=== PATIENT | male | born 1985 | race Asian ===

== ENCOUNTER 2017-04-23 11:19 | Inpatient (IN) | payer MEDICAID ==
[~2017-04-23] VITALS: Ht 177.8 cm; Wt 84.4 kg
[2017-04-23 11:24] VITALS: BP 93/64
--- NOTE | 2017-04-23 11:34 | NUR ---
PT TAKEN IN WHEELCHAIR TO BED 10
--- NOTE | 2017-04-23 11:41 | NUR ---
DR. MAKAYLA CUMMINS PT AT BEDSIDE
--- NOTE | 2017-04-23 11:45 | NUR ---
MOM BRINGS IN SON VIA W/C FOR SOB X 2MONTHS, PROGRESSIVELY GETTING WORSE SINCE LAST NIGHT. PT HERE FROM [place]. MED HX: OVERACTIVE IMMUNE SYSTEM, ARTHRITIS, ECZEMA RX: NONE; DENIES N/V/D; SKIN IS PINK/WARM/DRY; AAOX4 WITH WHEEL CHAIR ASSISTANCE; LUNGS CLEAR BL; HR EVEN AND REGULAR; PT DENIES ANY CP OR COUGH AT THIS TIME; PATIENT STATES PAIN OF 0/10 AT THIS TIME; VSS; PATIENT POSITIONED FOR COMFORT; HOB ELEVATED; BEDRAILS UP X2; BED DOWN. ER MD MADE AWARE OF PT STATUS.
[2017-04-23] MEDS ORDERED: NACL 0.9% 1,000 ML IV SCH (11:54)
--- NOTE | 2017-04-23 12:03 | NUR ---
RT AT BEDSIDE
--- NOTE | 2017-04-23 12:06 | NUR ---
XRAY AT BEDSIDE
[2017-04-23 12:27] LABS: HEMATOCRIT 34.6 % (36-52); HEMOGLOBIN 11.4 g/dL (12.0-18.0); MEAN CORPUSCULAR HEMOGLOBIN 31 pg (27-31); MEAN CORPUSCULAR HGB CONC 33 g/dL (33-37); MEAN CORPUSCULAR VOLUME 93 fL (80-94); PLATELET COUNT (AUTO) 190 K/uL (140-450); RED BLOOD CELL COUNT(AUTO) 3.72 MIL/uL (4.20-6.10); RED CELL DISTRIBUTION WIDTH 13.9 % (11.6-13.7)
[2017-04-23 13:03] LABS: WHITE BLOOD COUNT (AUTO) 31.4 K/uL (4.8-10.8)
[2017-04-23 13:04] LABS: ANION GAP 12.8 (8-16); CARBON DIOXIDE 21.4 mmol/L (21-32); CREATININE 0.7 mg/dL (0.7-1.3); POTASSIUM 4.2 mmol/L (3.5-5.1)
[2017-04-23] MEDS ORDERED: NACL 0.9% 1,500 ML IV ONE (13:05)
[2017-04-23] MEDS ORDERED: NACL 0.9% 250 ML IV ONE (13:05)
[2017-04-23 13:06] LABS: LYMPHOCYTES % (MANUAL) 3 % (20-46); MONOCYTES % (MANUAL) 4 % (5-12)
[2017-04-23 13:09] LABS: ALBUMIN 1.7 g/dL (3.4-5.0); TOTAL BILIRUBIN 0.5 mg/dL (0.0-1.0)
[2017-04-23] MEDS ORDERED: PIPERACILLIN/TAZOBACTAM 3.375 GM in DEXTROSE 5% 50 ML IV ONE (13:10)
[2017-04-23 13:12] LABS: PROTHROMBIN TIME 11.6 secs (10.8-13.4)
[2017-04-23] MEDS ORDERED: ASPIRIN 81 MG TAB.CHEW PO SCH ×2 (13:25→17:00)
[2017-04-23] MEDS ORDERED: HYDROcodone/APAP 5/325 MG 1 TAB TAB PO PRN (13:25)
[2017-04-23] MEDS ORDERED: PROMETHAZINE 25 MG/ML VIAL IVP PRN (13:25)
[2017-04-23] MEDS ORDERED: NITROGLYCERIN 0.4 MG TAB SL PRN (13:25)
[2017-04-23] MEDS ORDERED: PIPERACILLIN/TAZOBACTAM 3.375 GM VIAL IV ONE (13:28)
[2017-04-23 13:46] LABS: LIPASE 178 U/L (73-393)
--- NOTE | 2017-04-23 13:52 | NUR ---
CALLED DR. JOEY BARTON [phone] NO ANSWER; [phone] LEFT CALL BACK NUMBER [phone] RE: ABG ORDERED 04/23/2017 AT 1343 PATIENT REMAINS IN ED UNDER DR. AUBREY NUNN PREVIOUS ABG COMPLETED AT 1210
[2017-04-23] MEDS ORDERED: LIDOCAINE MPF 1% - **ER/OR** 5 ML ONE ×2 (13:58→15:20)
[2017-04-23] MEDS ORDERED: MORPHINE SULFATE 2 MG/ML SYR IVP ONE (14:25)
[2017-04-23] MEDS ORDERED: MIDAZOLAM 2 MG/2 ML VIAL IV ONE (14:25)
[2017-04-23] MEDS ORDERED: METOPROLOL 25 MG TAB PO SCH ×2 (15:00→21:00)
[2017-04-23] MEDS ORDERED: LISINOPRIL 5 MG TAB PO SCH (15:00)
--- NOTE | 2017-04-23 15:01 | NUR ---
[address]ND CALL TO DR. SAMMIE BARTON ON PHONE NUMBERS NOTED AT [phone] PATIENT REMAINS IN ED
--- NOTE | 2017-04-23 15:40 | NUR ---
DR. SAMMIE BARTON CURRENTLY AT BEDSIDE ER-10 PREPARING FOR CHEST TUBE INSERTION ASSIST WITH DR. AUBREY NUNN REVIEWED ABG ORDERED PER MD DR. LOYD MAYBERRY
--- NOTE | 2017-04-23 15:51 | NUR ---
XRAY AT BEDSIDE
--- NOTE | 2017-04-23 16:10 | NUR ---
PATIENT CURRENTLY IN RADIOLOGY FOR CT SCAN PAPER AND PULP MILL WORKER TO ATTEMPT ABG AT A LATER TIME
--- NOTE | 2017-04-23 16:30 | NUR ---
Patient will be admitted to [facility]. Admited to ICU. Will go to room ICU6. Belongings list completed. Report to CARMEL UREÑA.
[2017-04-23 16:45] VITALS: BP 116/70
[2017-04-23] MEDS ORDERED: LORazepam 2 MG/ML VIAL IVP SCH (16:45)
[2017-04-23] MEDS: NACL 0.9% 1,000 ML IV SCH ×3 (17:12→23:20)
[2017-04-23 17:18] LABS: CHOL/HDL RATIO 4.6 (1-4.5); FREE T4 (FREE THYROXINE) 1.29 ng/dL (0.76-1.46); THYROID STIMULATING HORMONE 0.57 uIU/mL (0.34-3.74)
--- NOTE | 2017-04-23 17:27 | NUR ---
AT [address] CARNES. WILL FOLLOW UP ON ORDER.
--- NOTE | 2017-04-23 17:32 | NUR ---
PT BROUGHT FROM CT SCAN TO ICU AT 1440 AM. PT ALERT AND ORIENTED. MACANESE SPEAKING ONLY. SKIN DRY AND WARM TO TOUCH. BODY TEMPERATURE WAS 100 DEGREE F. EXTRA CLOTHES REMOVED AND COLD COMPRESS PROVIDED. PUPILS REACTIVE TO LIGHT. SINUS TACHY. LUNGS SOUND DIMINISHED ON AUSCULTATION. CHEST TUBE NOTED ON RIGHT UPPER CHEST SECURED WITH DRESSING WITH CHEST TUBE CLAMPED. DRESSING INTACT. RIGHT AC INTACT. ABDOMEN SOFT ROUND AND NON-TENDER. ACTIVE BOWEL SOUND ON ALL FOUR QUADRANTS. DIFFUSE EXCORIATIONS TO THE BILATERAL SHOULDER, HANDS, PENIS NOTED. DRY. OPEN SKIN ON SACROCOCCYX AREA, DRY. NO DRAINAGE. KEPT HOB ELEVATED. BED IN LOW POSITION LOCKED. ORIENTED TO ICU KENT, STAFF, BED, CALL LIGHT. WILL CONTINUE TO MONITOR. FAMILY AT BEDSIDE. WILL CONTINUE TO MONITOR.
[2017-04-23 18:00] VITALS: BP 107/65
--- NOTE | 2017-04-23 19:10 | NUR ---
AT 181 BODY TEMPERATURE REDUCED TO 99.3 DEGREE F.
--- NOTE | 2017-04-23 19:15 | NUR ---
TEMPERATURE REDUCED TO 98.4 DEGREE F. PT SLEEPING IN BED COMFORTABLE. HR 125, RR 25 SPO2 93%. BP 99/51. O2 AT 2 LTR/MIN VIA N/C. NO ACUTE RESPIRATORY DISTRESS NOTED. NO CHANGE IN LOC. WILL CONTINUE TO MONITOR.
--- NOTE | 2017-04-23 19:30 | NUR ---
RECEIVED REPORT FROM NIRANJAN. CARMEL. PT IS LETHARGIC, AROUSABLE TO VOICE, PT IS MALTESE SPEAKER BUT ABLE TO FOLLOW SIMPLE COMMANDS. PT IS ON O2 2L/MIN VIA NC, O2 SAT 94%, TACHYPNEA. BILATERAL LUNG SOUND DIMINISHED. PT HAS CHEST TUBE AT RIGHT UPPER CHEST CONNECTED TO SUCTION. PERIPHERAL LINE TO RIGHT AC WITH NS 100ML/HR. OPEN SKIN TEAR TO SACRAL AREA, SCABS TO BILATERAL BACK SHOULDERS, RIGHT HAND, AND PENIS NOTED. ST ON THE MONITOR, HEART RATE ABOVE 120'S, BP 95/65 NOTED. HOB ELEVATED, BED IS LOW POSITION, CALL LIGHT WITHIN REACH. WILL CONTINUE TO MONITOR.
--- NOTE | 2017-04-23 19:35 | NUR ---
ENDORSED TO NOC SHIFT RN FOR CONTINUITY OF CARE. PT ON STABLE CONDITION.
--- NOTE | 2017-04-23 19:45 | NUR ---
PATIENT IS TACHYCARDEIC HR 125-126/MIN, BP 95/[address] WATSON, WITH NEW TO GIVE ANOTHER 1 LITER IV BOLUS OF NORMAL SALINE; CARRIED OUT.
--- NOTE | 2017-04-23 19:50 | NUR ---
CT CHEST CRITICAL RESULT SEEN AND READ BY DR. WATSON
[2017-04-23 20:00] VITALS: BP 107/69
[2017-04-23] MEDS ORDERED: NACL 0.9% 1,000 ML IV ONE (20:00)
--- NOTE | 2017-04-23 20:15 | NUR ---
INSERTED FREEMAN CATH ORDERED, PT TOLERATED WELL. CLEAR YELLOWISH URINE DRAINING TO THE BAG NOTED.
[2017-04-23] MEDS ORDERED: PIPERACILLIN/TAZOBACTAM 3.375 GM in DEXTROSE 5% 50 ML IV SCH (21:00)
[2017-04-23] MEDS ORDERED: PIPER/TAZO 3.375GM/D5W PREMIX 50 ML IV SCH (21:00)
[2017-04-23 21:11] LABS: APPEARANCE,URINE CLEAR (CLEAR); BILIRUBIN,URINE NEGATIVE (NEGATIVE); BLOOD, URINE TRACE-L (NEGATIVE); COLOR,URINE YELLOW (YELLOW); LEUKOCYTE ESTERASE ,URINE NEGATIVE (NEGATIVE); NITRITE, URINE NEGATIVE (NEGATIVE); UGLUCOSE NEGATIVE (NEGATIVE)
--- NOTE | 2017-04-23 21:15 | NUR ---
ADMINISTERED SCHEDULED MEDICATION ORDERED, PT TOLERATED WELL. NO ACUTE DISTRESS NOTED. TACHYPNEA, TACHYCARDIA NOTED AT THIS TIME. PT CLOSED HIS EYES, AROUSABLE TO VOICE.
[2017-04-23 21:17] LABS: BARBITURATE, URINE NEG. ng/ml (NEG <=200); BENZODIAZEPINE, URINE POS. ng/mL (NEG <=200); CANNABINOID, URINE NEG. ng/mL (NEG <=50); COCAINE, URINE NEG. ng/mL (NEG <=300); OPIATE, URINE POS. ng/mL (NEG <=2000); PHENCYCLIDINE SCREEN,URINE NEG. ng/mL (NEG <=25)
[2017-04-23 21:23] LABS: RBC,URINE 0-5 (RARE) /HPF (0-5); WBC,URINE 0-5 (RARE) /HPF (0-5)
[2017-04-23 21:24] LABS: URINE AMORPHOUS URATE 1+ /HPF (None Seen)
[2017-04-23 22:00] VITALS: BP 105/71
--- NOTE | 2017-04-23 23:00 | NUR ---
DR. WATSON AND TECH ARE AT BEDSIDE TO INSERT CENTRAL LINE.
--- NOTE | 2017-04-23 23:50 | NUR ---
CENTRAL LINE INSERTION DONE, PT TOLERATED WELL. NO ACUTE DISTRESS NOTED. PT DENIES PAIN. WILL CONTINUE TO MONITOR.
[2017-04-24] VITALS (52 sets, daily range): BP systolic 85–166; BP diastolic 53–79
--- NOTE | 2017-04-24 00:10 | NUR ---
CXR DONE AT THIS TIME TO CHECK CENTRAL LINE PLACEMENT.
--- NOTE | 2017-04-24 00:25 | NUR ---
FEVER NOTED 100.4 F AT THIS TIME. ADMINISTERED PRN TYLENOL ORDERED. PT TOLERATED WELL. HEART RATE 130'S NOTED, BP 105/69. WILL CONTINUE TO MONITOR.
[2017-04-24] MEDS: ACETAMINOPHEN 325 MG TAB PO PRN (00:27)
--- NOTE | 2017-04-24 01:15 | NUR ---
AND AT BEDSIDE TO SEE THE PT. WILL FOLLOW THE ORDER.
[2017-04-24] MEDS ORDERED: VANCOMYCIN PER PHARMACY MC PRN (01:25)
[2017-04-24] MEDS ORDERED: VANCOMYCIN 1GM/DEXT 5% PREMIX 200 ML IV SCH (01:50)
[2017-04-24] MEDS ORDERED: LEVOFLOXACIN 750 MG/D5W PREMIX 150 ML IV ONE (01:59)
[2017-04-24] MEDS ORDERED: cefTRIAXone 1,000 MG VIAL ONE (02:00)
[2017-04-24] MEDS: LEVOFLOXACIN 750 MG/D5W PREMIX 150 ML IV SCH (02:04)
--- NOTE | 2017-04-24 02:30 | NUR ---
PT IS IN ASLEEP, AROUSABLE TO VOICE. NO ACUTE DISTRESS NOTED, ST ON THE STAFFING BRANCH MANAGER. 95% O2 SAT WITH NON REBREATHER MASK 100%. T 98.8 NOTED. WILL CONTINUE TO MONITOR.
--- NOTE | 2017-04-24 03:05 | NUR ---
RECEIVED ORDER FROM AARSH SERRANO TO USE CENTRAL LINE.
[2017-04-24] MEDS: cefTRIAXone 2,000 MG in DEXTROSE 5% 100 ML IV SCH (03:30)
[2017-04-24] MEDS: NACL 0.9% 1,000 ML IV SCH ×6 (03:54→15:56)
[2017-04-24 04:39] LABS: HEMATOCRIT 31.3 % (36-52); HEMOGLOBIN 10.1 g/dL (12.0-18.0); MEAN CORPUSCULAR HEMOGLOBIN 30 pg (27-31); MEAN CORPUSCULAR HGB CONC 32 g/dL (33-37); MEAN CORPUSCULAR VOLUME 94 fL (80-94); PLATELET COUNT (AUTO) 153 K/uL (140-450); RED BLOOD CELL COUNT(AUTO) 3.32 MIL/uL (4.20-6.10); RED CELL DISTRIBUTION WIDTH 14.2 % (11.6-13.7); WHITE BLOOD COUNT (AUTO) 17.5 K/uL (4.8-10.8)
--- NOTE | 2017-04-24 05:03 | NUR ---
changed Pt from NRB mask to 7L oximizer. pt is asleep comfortably. spo2 93%. no distress noted. rn youseb aware
[2017-04-24 05:18] LABS: PROTHROMBIN TIME 11.6 secs (10.8-13.4)
--- NOTE | 2017-04-24 05:30 | NUR ---
PT IS IN ASLEEP, AROUSABLE TO VOICE, VERBALLY RESPONSIVE. NO ACUTE DISTRESS NOTED. O2 SAT 95% WITH OXYMIZER 7L/M. ST ON THE MONITOR. DENIES ANY PAIN. NO FEVER NOTED. WILL CONTINUE TO MONITOR.
[2017-04-24] MEDS ORDERED: PIPER/TAZO 3.375GM/D5W PREMIX 50 ML IV SCH (06:00)
[2017-04-24 06:09] LABS: LYMPHOCYTES % (MANUAL) 3 % (20-46); MONOCYTES % (MANUAL) 4 % (5-12)
[2017-04-24 06:18] LABS: ALBUMIN 1.2 g/dL (3.4-5.0); ANION GAP 9.1 (8-16); CARBON DIOXIDE 23.3 mmol/L (21-32); CREATININE 0.5 mg/dL (0.7-1.3); MAGNESIUM 1.9 mg/dL (1.8-2.4); PHOSPHORUS 3.1 mg/dL (2.5-4.9); POTASSIUM 3.4 mmol/L (3.5-5.1); TOTAL BILIRUBIN 0.3 mg/dL (0.0-1.0)
--- NOTE | 2017-04-24 07:20 | NUR ---
REPORT GIVEN TO DOMINIQUE.
--- NOTE | 2017-04-24 07:30 | NUR ---
RECEIVED REPORT FROM NIGHT NURSE. PT IS LETHARGIC, AROUSABLE TO VOICE, FOLLOWS SIMPLE COMMANDS. SINUS TACHY ON MONITOR. PT IS ON O2 AT 7 LPM/NC. LUNGS SOUND DIMINISHED. INTERMITTENT, PRODUCTIVE COUGH NOTED. CHEST TUBE TO RIGHT UPPER CHEST CONNECTED TO SUCTION. CENTRAL LINE TLC TO LEFT IJ ASYMPTOMATIC, PATENT AND INTACT, RECEIVING NORMAL SALINE AT 180 ML/HR. ABDOMEN SOFT, NON DISTENDED W/ HYPOACTIVE BOWEL SOUNDS. SMALL OPEN SKIN TO SACRAL AREA, MULTIPLE SCABS TO BILATERAL SHOULDERS, HANDS AND PENIS NOTED. SKIN IS DRY AND WARM TO TOUCH. FREEMAN CATH IN PLACE DRAINING URINE TO GRAVITY DRAINAGE BAG. SCDS IN PLACE FOR VTE PROPHYLAXIS. HOB 30 DEGREES, BED IN LOWEST POSITION AND CALL LIGHT WITHIN REACH. WILL CONTINUE TO MONITOR.
--- NOTE | 2017-04-24 08:00 | NUR ---
DR. BANKS IN TO SEE AND EXAMINE PT. MADE AWARE OF POTASSIUM LEVEL OF 3.4. WILL FOLLOW UP ON ORDERS.
[2017-04-24] MEDS: DOCUSATE 100 MG/10 ML UDC GT SCH (08:42)
[2017-04-24] MEDS: ASPIRIN 81 MG TAB.CHEW PO SCH (08:44)
[2017-04-24] MEDS: LACTOBACILLUS RHAMNOSUS GG 1 EACH CAP PO SCH (08:44)
[2017-04-24] MEDS ORDERED: ATORVASTATIN 20 MG TAB PO SCH (09:00)
[2017-04-24] MEDS ORDERED: ASPIRIN 81 MG TAB.CHEW PO SCH (09:00)
--- NOTE | 2017-04-24 09:00 | NUR ---
MEDICATIONS ADMINISTERED. PT IS HAVING INTERMITTENT, PRODUCTIVE COUGH. YELLOWISH THICK SPUTUM NOTED. WILL CONTINUE TO MONITOR.
[2017-04-24 09:13] LABS: HEPATITIS A ANTIBODY IGM Negative (Negative); HEPATITIS B CORE AB TOTAL Negative (Negative); HEPATITIS B SURFACE ANTIBODY Reactive (.); HEPATITIS B SURFACE ANTIGEN Negative (Negative)
--- NOTE | 2017-04-24 09:30 | NUR ---
PT'S MOTHER CAME TO VISIT. DR. BANKS CAME AND TALKING TO PT'S MOTHER AT BEDSIDE.
--- NOTE | 2017-04-24 10:06 | NUR ---
PT SEEN AND EXAMINED BY DR. BERNAL. WILL FOLLOW UP ON ORDERS.
[2017-04-24] MEDS ORDERED: POTASSIUM CHLORIDE 20% 40 MEQ/15 ML UDC PO SCH (10:14)
[2017-04-24] MEDS ORDERED: MULTIVITAMIN-12 10 ML, THIAMINE 100 MG, MAGNESIUM SULFATE 50% 2,000 MG, FOLIC ACID 5 MG... IV SCH ×5 (10:30)
--- NOTE | 2017-04-24 10:44 | NUR ---
DR VARGAS CALLED TO GET UPDATE. WITH ORDERS FOR ABG AND TO STOP BANANA BAG. RT AND PRIMARY RN MADE AWARE.
--- NOTE | 2017-04-24 11:10 | NUR ---
PENDING WOUND CARE EVALUATION, DOCTOR AT BEDSIDE PERFORMING PROCEDURE, WILL RETURN WHEN PT IS AT STABLE CONDITION.
--- NOTE | 2017-04-24 11:20 | NUR ---
PT WAS INTUBATED BY DR. VARGAS. VENT SETTINGS: AC 12, FIO2 100%, VT 500, PEEP 8. HR 180. DR. VARGAS, DR BANKS AT BEDSIDE AWARE. WILL FOLLOW UP ON ORDERS.
--- NOTE | 2017-04-24 11:20 | NUR ---
PT WAS INTUBATED BY DR. VARGAS WITH 7.5 ET TUBE SECURED AT LEFT CORNER OF MOUTH WITH ANCHOR FAST AND SPUTUM COLLECTED LARGE AMT OF THICK YELLOW SECRETIONS, B\S ARE COARSE BILATERALLY, VENT SETTINGS AC12 VT 500 PEEP 8 AND FIO2 100% ALARMS ON AND FUNCTIONING PT IS SEDATED AND HAVING XRAY DONE. ABG AND TX ARE ORDERED
--- NOTE | 2017-04-24 11:28 | NUR ---
PATIENT HAS BEEN SCREENED AND CATEGORIZED HIGH NUTRITION RISK. PATIENT WILL BE SEEN WITHIN 1-2 DAYS OF ADMISSION. 04/24/17 - 04/25/[address]
[2017-04-24] MEDS ORDERED: ALBUTEROL SULFATE/IPRATROPIU 3 ML SOL IH PRN (11:40)
--- NOTE | 2017-04-24 12:00 | NUR ---
NORMAL SALINE 1 L BOLUS GIVEN ORDERED.
[2017-04-24] MEDS: PROPOFOL 1000 MG/100 ML PREMIX 100 ML IV PRN (12:02)
[2017-04-24] MEDS: methylPREDNISolone SS 125 MG/2 ML VIAL IVP SCH ×2 (12:30→20:46)
[2017-04-24] MEDS: VANCOMYCIN 750 MG in DEXTROSE 5% 250 ML IV SCH ×2 (12:31→23:41)
[2017-04-24] MEDS: ALBUTEROL SULFATE/IPRATROPIU 3 ML SOL IH SCH ×2 (12:59→19:11)
--- NOTE | 2017-04-24 12:59 | NUR ---
VENT CHECK, I\L TX GIVEN WITH DUONEB 3ML WITH NO ADVERSE REACTION POST TX B\S ARE COARSE
--- NOTE | 2017-04-24 13:30 | NUR ---
ANOTHER NORMAL SALINE 1 L BOLUS GIVEN ORDERED.
--- NOTE | 2017-04-24 13:30 | NUR ---
DR. BANKS IN THE UNIT TO SEE PT, IS AWARE OF ABG RESULTS. WILL FOLLOW UP ON ORDERS.
[2017-04-24] MEDS ORDERED: ETOMIDATE 20 MG/10 ML VIAL IVP SCH (13:46)
[2017-04-24] MEDS ORDERED: VECURONIUM 10 MG VIAL IVP SCH (13:47)
[2017-04-24] MEDS ORDERED: NACL 0.9% 1,000 ML IV SCH (13:59)
[2017-04-24] MEDS ORDERED: PROBIOTIC SCREEN 1 EA MISC MC PRN (14:25)
--- NOTE | 2017-04-24 14:43 | NUR ---
NO ACUTE DISTRESS NOTED AT THIS TIME. PT IS SEDATED. FLACC 0. AFEBRILE. HOB KEPT AT 30 DEGREES AND SAFETY MEASURES ENSURED. WILL CONTINUE TO MONITOR.
--- NOTE | 2017-04-24 14:54 | NUR ---
04/24/17 RD INITIAL ASSESSMENT COMPLETED PLEASE REFER TO NUTRITION ASSESSMENT UNDER CARE ACTIVITY FOR ESTIMATED NUTRITIONAL NEEDS. 1. WHEN MEDICALLY APPROPRIATE CONSIDER NUTRITION SUPPORT: NUTREN PULMONARY AT 10 ML/HR AND ADVANCE 10 ML Q6H TO GOAL OF 60 ML/HR --AT GOAL OF 60 ML/HR THIS WILL PROVIDE 1440 ML TOTAL VOLUME, 2160 KCAL, 98 GM PROTEIN TO MEET 100% OF PATIENT ESTIMATED KCAL NEEDS AND 92% OF PATIENT ESTIMATED PROTEIN NEEDS 2. SHOULD PATIENT BE WEANED OFF OF VENTILATOR SUPPORT, CONSIDER SWALLOW EVALUATION TO DETERMINE PATIENTS PO INTAKE ABILITY. 3. CONSULT RD PRN SHOULD PATIENTS PO INTAKE CHANGE. 4. RD TO FOLLOW-UP 2-3 DAYS, HIGH RISK KATE PHELAN RD
--- NOTE | 2017-04-24 15:37 | NUR ---
VENT CHECK ABG DRAWN ON LB WITHOUT INCIDENT AND RESULTS CALLED BACK TO DR. VARGAS AND ABG AT 1730 AND SPUTUM COLLECTED FOR C&S THE FIRST SAMPLE LAB SENT OUT FOR AFB
[2017-04-24] MEDS ORDERED: FERRIC GLUCONATE 125 MG in NACL 0.9% 100 ML IV SCH (16:00)
[2017-04-24] MEDS ORDERED: SODIUM BICARBONATE 8.4% PFS 50 MEQ/50 ML SYR IVP SCH (16:00)
--- NOTE | 2017-04-24 17:11 | NUR ---
VENT CHECK, ABG DRAWN ON LB WITHOUT INCIDENT AND RESULTS CALLED TO DR. VARGAS
--- NOTE | 2017-04-24 17:17 | NUR ---
ABG RESULTS READ BACK TO DR. VARGAS AND DECREASE FIO2 TO 70% AND ABG IN AM AT 0600
--- NOTE | 2017-04-24 17:30 | NUR ---
OK TO USE OGT PER DR. WATSON. NO GASTRIC RESIDUALS NOTED AT THIS TIME. TUBE FEEDING STARTED ORDERED. WILL CONTINUE TO MONITOR.
--- NOTE | 2017-04-24 17:45 | NUR ---
PT C/O DISCOMFORT DUE TO ETT. PT IS LIGHTLY SEDATED W/ RASS -2. DR. BARTON MADE AWARE OF PT'S DISCOMFORT. NO NEW ORDER AT THIS TIME AND KEEP PT AT RASS -2. SOFT MITTENS APPLIED TO BILATERAL HANDS TO PREVENT ACCIDENTAL PULLING OF ETT.
--- NOTE | 2017-04-24 18:20 | NUR ---
DR. GIL IN TO SEE PT. WILL FOLLOW UP ON ORDERS.
--- NOTE | 2017-04-24 19:18 | NUR ---
REPORT GIVEN TO NIGHT NURSE FOR CONTINUITY OF CARE. NO ACUTE DISTRESS NOTED AT THIS TIME.
--- NOTE | 2017-04-24 19:25 | NUR ---
RECEIVED REPORT FROM MORNING SHIFT NURSE DOMINIQUE. PT IS SEDATED WITH PROPOFOL, AROUSABLE TO VOICE, ABLE TO FOLLOW SIMPLE COMMANDS. ETT TO VENT WITH SETTING A/C MODE RATE 20, FIO2 70%, VT 600, PEEP 8. BILATERAL LUNG SOUND RHONCHI, DIMINISHED. ST ON THE MONITOR. TACHYPNEA NOTED. CHEST TUBE TO RIGHT UPPER CHEST CONNECTED TO SUCTION. PT HAS CENTRAL LINE TO LEFT IJ TRIPLE LUMEN CATH INTACT AND PATENT, NO S/S OF INFECTION NOTED. PT HAS OGT TO FEEDING NUTREN PULMONARY 10ML/HR WITH WATER FLUSH 100ML Q4HR. OGT PLACEMENT CHECKED, RESIDUAL LESS THEN 10ML NOTED. BOWEL SOUND PRESENT AT ALL [address] FREEMAN CATH IN PLACE WITH CLEAR, YELLOW URINE DRAINING TO BAG.SMALL OPEN SKIN TO SACRAL AREA, MULTIPLE SCABS TO BILATERAL SHOULDERS, HANDS AND PENIS NOTED. SCD'S IN PLACE FOR VTE PROPHYLAXIS, HOB ELEVATED IN 30 DEGREE, BED IN LOW POSITION, CALL LIGHT WITHIN REACH. WILL CONTINUE TO MONITOR.
--- NOTE | 2017-04-24 19:35 | NUR ---
RECEIVED PHONE CALL FROM , NOTIFIED CXR RESULT.
--- NOTE | 2017-04-24 21:10 | NUR ---
ADMINISTERED SCHEDULED IV ABX, TOLERATED WELL. PT IS SEDATED WITH PROPOFOL, AROUSABLE TO VOICE. ST ON THE MONITOR. NO ACUTE DISTRESS NOTED. WILL CONTINUE TO MONITOR.
--- NOTE | 2017-04-24 23:30 | NUR ---
DR. WATSON AT BEDSIDE AT THIS TIME TO CHECK THE PT. WILL FOLLOW ORDER.
[2017-04-25] VITALS (83 sets, daily range): BP systolic 82–112; BP diastolic 44–86
[2017-04-25] MEDS: ALBUTEROL SULFATE/IPRATROPIU 3 ML SOL IH SCH ×4 (01:06→19:39)
[2017-04-25] MEDS: NACL 0.9% 1,000 ML IV SCH ×3 (01:35→20:39)
[2017-04-25] MEDS: cefTRIAXone 2,000 MG in DEXTROSE 5% 100 ML IV SCH (01:35)
--- NOTE | 2017-04-25 01:40 | NUR ---
ADMINISTERED SCHEDULED IV ABX, TOLERATED WELL. NO ACUTE DISTRESS NOTED. PT IS SEDATED WITH PROPOFOL. OGT TO FEEDING. RESIDUAL CHECKED, LESS THAN 5ML NOTED. PT DENIES PAIN. WILL CONTINUE TO MONITOR.
[2017-04-25] MEDS: LEVOFLOXACIN 750 MG/D5W PREMIX 150 ML IV SCH (03:05)
--- NOTE | 2017-04-25 03:40 | NUR ---
PT IS SEDATED, RASS -2, AROUSABLE TO VOICE. ST ON THE MONITOR. ETT TO VENT, NO ACUTE RESPIRATORY DISTRESS NOTED AT THIS TIME. OGT TO FEEDING. WILL CONTINUE TO MONITOR.
--- NOTE | 2017-04-25 04:15 | NUR ---
FREEMAN CATH LEAKING NOTED, CHANGED TO NEW FREEMAN CATH, PT TOLERATED WELL. NO RESISTANT NOTED, CLEAR YELLOW URINE COMING OUT NOTED. NO ACUTE DISTRESS NOTED. WILL CONTINUE TO MONITOR.
[2017-04-25 04:59] LABS: HEMOGLOBIN 9.6 g/dL (12.0-18.0)
[2017-04-25] MEDS: methylPREDNISolone SS 125 MG/2 ML VIAL IVP SCH ×3 (05:22→20:37)
--- NOTE | 2017-04-25 05:50 | NUR ---
NOTIFIED TO DR. WATSON ABOUT PT'S BP IS LOW SBP IS 80'S AND MAP 65. WILL FOLLOW THE ORDER.
[2017-04-25 05:59] LABS: HEMATOCRIT 30.2 % (36-52); MEAN CORPUSCULAR HEMOGLOBIN 30 pg (27-31); MEAN CORPUSCULAR HGB CONC 32 g/dL (33-37); MEAN CORPUSCULAR VOLUME 94 fL (80-94); PLATELET COUNT (AUTO) 179 K/uL (140-450); RED CELL DISTRIBUTION WIDTH 14.1 % (11.6-13.7); WHITE BLOOD COUNT (AUTO) 22.8 K/uL (4.8-10.8)
[2017-04-25 06:06] LABS: ANION GAP 12.2 (8-16); CARBON DIOXIDE 22.4 mmol/L (21-32); CREATININE 1.2 mg/dL (0.7-1.3); POTASSIUM 4.6 mmol/L (3.5-5.1)
[2017-04-25 06:12] LABS: PHOSPHORUS 4.1 mg/dL (2.5-4.9)
[2017-04-25 06:18] LABS: LYMPHOCYTES % (MANUAL) 3 % (20-46); MONOCYTES % (MANUAL) 3 % (5-12)
[2017-04-25] MEDS ORDERED: FUROSEMIDE 20 MG/2 ML VIAL IVP SCH (07:16)
--- NOTE | 2017-04-25 07:20 | NUR ---
REPORT GIVEN TO RATANA. BURT FOR CONTINUITY OF CARE.
--- NOTE | 2017-04-25 07:30 | NUR ---
RECEIVED REPORT FROM BUFFERER RN. PT IS SEDATED W/ RASS -2, ON PROPOFOL DRIP. AROUSABLE TO VOICE, FOLLOWS SIMPLE COMMANDS. SINUS TACHYCARDIA ON MONITOR. PT IS ETT TO VENT W/ SETTINGS: AC 20, FIO2 40%, VT 600, PEEP 8. LUNGS SOUND DIMINISHED. CHEST TUBE TO RIGHT UPPER CHEST CONNECTED TO SUCTION. CENTRAL LINE TLC TO LEFT IJ ASYMPTOMATIC, PATENT AND INTACT, RECEIVING NORMAL SALINE AT 100 ML/HR AND PROPOFOL DRIP AT 5 MCG/KG/MIN. OGT IN PLACE, PLACEMENT CHECKED. ABDOMEN SOFT, NON DISTENDED. PT IS RECEIVING TUBE FEEDING NUTREN PULMONARY AT 20 ML/HR AND WATER FLUSH 100 ML Q 4HR. NO RESIDUALS NOTED. INCREASED TUBE FEEDING RATE TO 30 ML/HR. MULTIPLE SCABS TO BILATERAL SHOULDERS, HANDS AND PENIS NOTED. SKIN IS DRY AND WARM TO TOUCH. FREEMAN CATH IN PLACE DRAINING URINE TO GRAVITY DRAINAGE BAG. SCDS IN PLACE FOR VTE PROPHYLAXIS. HOB 30 DEGREES, BED IN LOWEST POSITION AND CALL LIGHT WITHIN REACH. WILL CONTINUE TO MONITOR.
--- NOTE | 2017-04-25 07:52 | NUR ---
RECEIVED ON A TAZZ NetworksSCAPE R86O VENTILATOR PLUGGED INTO RED OUTLET TOLERATING WELL WITHOUT ADVERSE REACTIONS NOTED A PORTEX ENDOTRACHEAL TUBE #7.5 SECURED WITH AN ANCHOR FAST AT 23cm AMBU BAG NOTED AT HOB LOC ASLEEP EASILY AWAKENS IN HFW POSITION SKIN TONE PINK BREATH SOUNDS DIMINISHED BILATERAL WITH GOOD CHEST RISE NO SUCTIONING AT THIS TIME HEAD OF LOSS PREVENTION TO MONITOR AIRWAY PATENT
--- NOTE | 2017-04-25 08:00 | NUR ---
DR. BANKS IN TO SEE AND EXAMINE PT, AWARE OF APTT 50.8. OK TO GIVE HEPARIN SUBQ ORDERED, PER DR. BANKS.
[2017-04-25] MEDS: PANTOPRAZOLE 40 MG INJ VIAL IVP SCH (08:56)
[2017-04-25] MEDS: MULTIVITAMIN 1 TAB PO SCH (08:57)
[2017-04-25] MEDS: ASPIRIN 81 MG TAB.CHEW PO SCH (08:57)
[2017-04-25] MEDS: DOCUSATE 100 MG/10 ML UDC GT SCH (08:57)
[2017-04-25] MEDS: LACTOBACILLUS RHAMNOSUS GG 1 EACH CAP PO SCH (08:57)
--- NOTE | 2017-04-25 09:00 | NUR ---
MEDICATIONS ADMINISTERED. PT TOLERATED WELL.
[2017-04-25] MEDS: PROPOFOL 1000 MG/100 ML PREMIX 100 ML IV PRN (09:06)
--- NOTE | 2017-04-25 09:20 | NUR ---
ASLEEP RESTING COMFORTABLY NO EVIDENCE OF PULMONARY DISTRESS NOTED GOOD CHEST RISE
--- NOTE | 2017-04-25 09:48 | NUR ---
CHEST X-RAY TAKEN. NO SIGNS OF DISTRESS NOTED.
--- NOTE | 2017-04-25 09:55 | NUR ---
AFB 2ND SPECIMEN COLLECTED AT THIS TIME TOLERATED PROCEDURE WELL WITHOUT INCIDENT SAMPLE FORWARDED TO [facility] FOR PROCESSING
--- NOTE | 2017-04-25 10:10 | NUR ---
DR. GUIDO IN TO SEE PT. WILL FOLLOW UP ON ORDERS.
[2017-04-25 10:12] LABS: ANTI DOUBLE STRANDED DNA AB <1 IU/mL (0-9)
[2017-04-25 10:12] LABS: FOLIC ACID 17.6 ng/mL (>3.0)
--- NOTE | 2017-04-25 11:10 | NUR ---
AWAKE STABLE NO RESPIRATORY DISTRESS NOTED BREATH SOUNDS CLEAR BILATERAL WITH GOOD CHEST RISE AIRWAY PATENT MOTHER AT BEDSIDE
--- NOTE | 2017-04-25 11:21 | NUR ---
DR. BANKS IN AND TALKING TO PT'S MOTHER AT BEDSIDE. PT IS STABLE. NO ACUTE DISTRESS NOTED.
[2017-04-25] MEDS: VANCOMYCIN 750 MG in DEXTROSE 5% 250 ML IV SCH (11:29)
--- NOTE | 2017-04-25 11:30 | NUR ---
DR. BANKS IS AWARE OF PT'S LOW BLOOD PRESSURE, NO NEW ORDER FOR MAP OF ABOVE 60.
--- NOTE | 2017-04-25 12:00 | NUR ---
OGT PLACEMENT CONFIRMED. NO RESIDUALS NOTED. TUBE FEEDING RATE INCREASED TO 40 ML/HR. (GOAL RATE = 60 ML/HR)
[2017-04-25] MEDS: ACETAMINOPHEN 325 MG TAB PO PRN (14:09)
--- NOTE | 2017-04-25 14:28 | NUR ---
ASLEEP NO SOB NOTED BREATH SOUNDS CLEAR BILATERAL WITH GOOD CHEST RISE AIRWAY PATENT DECREASED PEEP TO 5 cmH2O DUE TO DOWNWARD TRENDING OF BLOOD PRESSURE CHECKER/STOCKER TO MONITOR RATANA/RN NOTIFIED
--- NOTE | 2017-04-25 14:50 | NUR ---
SEDATED RESTING WELL NO DISTRESS NOTED GOOD CHEST RISE
--- NOTE | 2017-04-25 14:57 | NUR ---
TUBE FEEDING RATE INCREASED TO 50 ML/HR (GOAL RATE = 60 ML/HR). OGT PLACEMENT CHECKED. NO RESIDUALS NOTED. PT TOLERATING TUBE FEEDING WELL.
[2017-04-25 15:15] LABS: ANTI-NUCLEAR ANTIBODY TITER Negative (.)
--- NOTE | 2017-04-25 15:20 | NUR ---
WOUND EVALUATION NOTE: REASON FOR WOUND EVALUATION:SCABS COMPLETE SKIN ASSESSMENT DONE ON THIS 32 Y/O MALE PATIENT FROM HOME TO [facility], WITH INITIAL DIAGNOSIS OF SOB AND CHEST PAIN. PT. HAS BEEN SICK ON AND OFF FOR PAST FEW MONTHS WITH SKIN LESIONS AND SCABS. PT. SEEN HIS DOCTOR WITH STEROID TREATMENT. ALL ABOVE INFORMATION WAS OBTAINED FROM THE ADMISSION H&P. LABS ARE WBC 22.8, H/H 9.6/30.2, GLUCOSE 167, ALBUMIN 1.2. PATIENT IS AWAKE, ORIENTED TO PERSON, PLACE, GOOD EYE CONTACT. SKIN WARM TO TOUCH, TOENAILS ARE SHORT AND THIN, NO EDEMA, BLE WITH HAIR GROWTH AND NORMAL DORSAL PEDAL PULSES. #16 FR F/C PATENT AND INTACT. TF IN ORDERED. INITIAL PLAN OF CARE DISCUSSED WITH PRIMARY RN. INTEGUMENTARY: CHEST TUBE ON RIGHT LATERAL CHEST DRESSING DCI MULTIPLE SCABS WITH UNKNOWN ETIOLOGY TO SHOULDERS, ELBOWS, HANDS, PENIS AND TOES, WITH LARGEST ON LEFT SHOULDER 2.5X5 CM AND SMALLEST ON RIGHT 2ND TOE 0.3X0.3CM RIGHT EAR DTI 2X0.5 CM WITH SMALL PIN POINT OPENING 0.3X0.3 CM SACROCOCCYX - AREA IS DRY, SKIN INTACT RECOMMENDATIONS: - APPLY SKIN PREP TO RIGHT EAR BID WC AND LEAVE IT OPEN TO AIR -PAINT ALL SCABS WITH BETADINE SOLUTION BID WC AND LEAVE IT OPEN TO AIR -CLEANSE SACROCOCCYX WITH SOAP AND WATER, PAT DRY , APPLY OPTIFORM Q7 DAYS AND PRN IF SOILING FOR PREVENTION MEASUREMENT -TURN AND REPOSITION PATIENT Q2H -ASSESS AND MONITOR SKIN CONDITION DURING POSITION CHANGE, PLEASE PAY ATTENTION TO RIGHT EAR -OFFLOAD BILATERAL HEELS BY PLACING PILLOWS UNDER CALVES AT ALL TIMES, UNLESS OTHERWISE CONTRAINDICATED -KEEP SKIN CLEAN AND DRY AT ALL TIMES. -PT. WAS INSTRUCTED TO TURN HEAD / SHIFT WEIGHT ON RIGHT EAR -PRESSURE REDISTRIBUTION SURFACE THERAPY -CONTINUE TO FOLLOW RD RECOMMENDATION COMORBIDITIES FOR WOUND HEALING: INFECTION, LOW ALBUMIN LEVEL, HOB ELEVATED MAJORITY OF THE DAY FOR MEDICAL CONDITIONS RECOMMENDATIONS DISCUSSED WITH PRIMARY RN WILL FOLLOW UP PATIENT Q 7-10 DAYS AND PRN. PLEASE CONTACT WOUND CARE NURSE FOR ANY QUESTIONS AND CHANGES IN WOUND CONDITION. Addendum: 04/25/17 at 1700 by Elenita Durán RN (Grace) SPOKE TO DR. SMITH, AND RECOMMENDATIONS GIVEN.
--- NOTE | 2017-04-25 16:00 | NUR ---
PT'S HR 161. RESIDENT PHYSICIAN DR. SMITH MADE AWARE. ORDER RECEIVED.
--- NOTE | 2017-04-25 16:09 | NUR ---
EKG COMPLETED. PT TOLERATED WELL.
--- NOTE | 2017-04-25 16:15 | NUR ---
PT SEEN AND EXAMINED BY DR. VARGAS, MADE AWARE OF EKG RESULT AND INCREASED HR. NEW ORDER RECEIVED.
--- NOTE | 2017-04-25 17:03 | NUR ---
RESTING WELL NO PULMONARY DISTRESS NOTED BREATH SOUNDS RHONCHI BILATERAL WITH GOOD CHEST RISE ENDOTRACHEAL SUCTION FOR MODERATE THIN YELLOW SECRETIONS SPECIMEN COLLECTED FOR AFB #3 AIRWAY PATENT SATURATION 97% ON FIO2 OF 40% TITRATED FIO2 TO 35% ALONZO/RN NOTIFIED
[2017-04-25] MEDS: AMIODARONE 450 MG in DEXTROSE 5% 250 ML IV SCH (17:41)
--- NOTE | 2017-04-25 17:41 | NUR ---
CARDIAC RHYTHM IS STILL A-FIB. PT IS LIGHTLY SEDATED, RASS -2. ABLE TO FOLLOW COMMANDS. DENIES PAIN OR DISCOMFORT. NO S/SX OF DISTRESS NOTED. AMIODARONE DRIP STARTED ORDERED. WILL CONTINUE TO MONITOR.
--- NOTE | 2017-04-25 17:45 | NUR ---
GASTRIC RESIDUAL 5 ML. TUBE FEEDING RATE INCREASED TO GOAL RATE 60 ML/HR.
--- NOTE | 2017-04-25 18:29 | NUR ---
DR. WATSON IN TO SEE AND EXAMINE PT, AND TALKING TO PT'S MOTHER AT BEDSIDE. DR. WATSON AWARE OF PT'S HR OF 157. PT IS ON AMIODARONE DRIP. NO ACUTE DISTRESS NOTED AT THIS TIME.
--- NOTE | 2017-04-25 19:25 | NUR ---
REPORT GIVEN TO NIGHT RN FOR CONTINUITY OF CARE. PT IS IN STABLE CONDITION.
--- NOTE | 2017-04-25 19:30 | NUR ---
ASSUMED CARE OF PT.INITIAL ASSESSMENT COMPLETED.PT SEDATED ON PROPOFOL DRIP 5MCG/KG/MIN RASS -2.PT OPENS EYES.FOLLOWS COMMANDS. AFIB NOTED ON MONITOR.ORALLY INTUBATED FIO2 35% TV600 AC20 PEEP5.W/TLC TO LT IJ INTACT.ON NS AT 100ML/HR; AMIODARONE DRIP AT 1MG/MIN AND PROPOFOL DRIP.W/OGT INTACT.PLACEMENT VERIFIED.ON OGT FEEDING NUTREN PULMONARY AT 60ML/HR WITH WATER FLUSH 100ML Q4HRS.NO RESIDUALS NOTED.W/CHEST TUBE TO RT CHEST INTACT.ON CONTINUOUS LOW SUCTION.W/FREEMAN CATHETER TO BSD DRANING SMALL AMT OF YELLOW URINE.MULTIPLE SCABS NOTED INCLUDING HAND, ELBOWS AND PENIS.W/DARK DISCOLORATION TO COCCYX ALSO NOTED.FLACC 0.REPOSITIONED.
--- NOTE | 2017-04-25 20:00 | NUR ---
ORAL CARE DONE.PT ON DAILY PROTONIX FOR GI PROPHYLAXIS AND HEPARIN FOR DVT PROPHYLAXIS.REPOSITIONED.SHAKES HEAD WHEN ASKED IF IN PAIN. FALL/SAFETY PRECAUTION IN PLACE.WILL CONTINUE TO MONITOR PT
--- NOTE | 2017-04-25 20:02 | NUR ---
PHONE CALL FROM PHARMACIST JANET, HE SAID LEVAQUIN AND AMIODARONE SHOULD NOT GO TOGETHER; CALLED DR WATSON, INFORMED OF THE ABOVE CONCERN OF PHARMACIST.HE SAID HE WILL LOOK INTO IT.
--- NOTE | 2017-04-25 21:15 | NUR ---
PT AWAKE; APPEARS ANXIOUS.PROPOFOL DRIP INCREASED TO 10 MCG/KG/MIN TO KEEP RASS -2; VERIFIED W/ RN RADHA.
--- NOTE | 2017-04-25 21:50 | NUR ---
DR GIL IN THE UNIT. MADE AWARE OF WHAT JANET,PHARMACIST SAID EARLIER.DR GIL DC'D LEVAQUIN AND CHANGED ANTIBIOTIC TO AZITHROMYCIN IV.TO START IN AM.ORDERED.
[2017-04-25] MEDS: VANCOMYCIN 1GM/DEXT 5% PREMIX 200 ML IV SCH (22:27)
[2017-04-26] VITALS (81 sets, daily range): BP systolic 80–132; BP diastolic 42–82
--- NOTE | 2017-04-26 | NUR ---
PT STILL SEDATED;PROPOFOL DRIP AT 10MCG/KG/MIN(4.95ML/HR); AMIODARONE DRIP AT 0.5MG/MIN.ORAL CARE USING VAP KIT.PT REPOSITIONED.FLACC 0
[2017-04-26] MEDS: ALBUTEROL SULFATE/IPRATROPIU 3 ML SOL IH SCH ×5 (01:11→19:42)
[2017-04-26] MEDS: cefTRIAXone 2,000 MG in DEXTROSE 5% 100 ML IV SCH (01:14)
[2017-04-26] MEDS: AMIODARONE 450 MG in DEXTROSE 5% 250 ML IV SCH (01:16)
--- NOTE | 2017-04-26 02:05 | NUR ---
PTS CONDITION REMAINS UNCHANGED.FLACC 0.REPOSITIONED.
--- NOTE | 2017-04-26 03:06 | NUR ---
PT CONVERTED TO SINUS TACHYCARDIA.STILL ON AMIODARONE DRIP AT 0.5MG/MIN. PT SEDATED.ON PROPOFOL DRIP AT 10MCG/KG/MIN.CHEST TUBE INTACT.W/PINKISH/REDDISH OUTPUT NOTED.FLACC 0
[2017-04-26] MEDS: methylPREDNISolone SS 125 MG/2 ML VIAL IVP SCH ×3 (04:45→20:18)
[2017-04-26 04:57] LABS: HEMATOCRIT 28.7 % (36-52); HEMOGLOBIN 9.3 g/dL (12.0-18.0); MEAN CORPUSCULAR HEMOGLOBIN 30 pg (27-31); MEAN CORPUSCULAR HGB CONC 32 g/dL (33-37); MEAN CORPUSCULAR VOLUME 93 fL (80-94); PLATELET COUNT (AUTO) 133 K/uL (140-450); RED BLOOD CELL COUNT(AUTO) 3.08 MIL/uL (4.20-6.10); RED CELL DISTRIBUTION WIDTH 14.4 % (11.6-13.7); WHITE BLOOD COUNT (AUTO) 14.9 K/uL (4.8-10.8)
--- NOTE | 2017-04-26 05:41 | NUR ---
MORNING CARE DONE.NO BM NOTED THIS SHIFT.10ML RESIDUAL NOTED ON OGT.CONTINUED ON OGT FEEDING WITH NUTREN PULMONARY AT 60ML/HR WITH WATER FLUSH 100ML Q4HRS ORDERED.CHEST TUBE AND FREEMAN CATHETER INTACT.TLC TO LT IJ INTACT.FLACC 0.REPOSITIONED
[2017-04-26 06:30] LABS: LYMPHOCYTES % (MANUAL) 7 % (20-46); MONOCYTES % (MANUAL) 7 % (5-12)
--- NOTE | 2017-04-26 06:56 | NUR ---
RECIVED PT ON VENT WITH SETTINGS CHARTED BREATH SOUNDS PRESENT BILAT SCATTRED RALES SXN PT WITH MIN AMGT GREENISH SECS ANBU BAG AT BEDSIDE VENT PLUGGED INTO RED OUTLET WILL CONTINMUE TO MONITOR PT ON VENT
[2017-04-26 07:04] LABS: CHLAMYDIA TRACHOMATIS AMP DNA Negative (Negative)
--- NOTE | 2017-04-26 07:30 | NUR ---
RECEIVED REPORT FROM ELECTRONIC ORGAN MECHANIC RN. BEDSIDE MONITOR SHOWS ST 104S-115S.PT SEDATED ON PROPOFOL DRIP 10MCG/KG/MIN RASS -2. ABLE TO OPEN EYES AND FOLLOW COMMANDS. ETT TO VENT WITH SETTING FIO2 35% TV600 AC20 PEEP5. IV TO LT IJ TLC RUNNING AMIODARONE 450 MG IN DEXTROSE 5% AT 0.5 MG/MIN AND 0.9 NS AT 100 MLS/HR, SITE INTACT AND PATENT WITH POSITIVE BLOOD RETURN.OGT RUNNING NUTREN PULMONARY AT 60ML/HR WITH WATER FLUSH 100ML Q4HRS INTACT.PLACEMENT VERIFIED AND RESIDUAL CHECKED ZERO.CHEST TUBE TO RT CHEST INTACT.ON CONTINUOUS LOW SUCTION.FREEMAN CATHETER IN PLACE WITH SMALL AMT OF YELLOW URINE NOTED. SKIN NON INTACT ( SEE WOUND ASSESSMENT ) HOB ELEVATED 30 DEGREES WITH LOW BED POSITION, CALL LIGHT IN REACH, WILL CONTINUE TO MONITOR.
--- NOTE | 2017-04-26 08:00 | NUR ---
ORAL CARE GIVEN, TURNED AND REPOSITIONED PT.
[2017-04-26] MEDS: LACTOBACILLUS RHAMNOSUS GG 1 EACH CAP PO SCH (08:20)
[2017-04-26] MEDS: DOCUSATE 100 MG/10 ML UDC GT SCH (08:20)
[2017-04-26] MEDS: ASPIRIN 81 MG TAB.CHEW PO SCH (08:20)
[2017-04-26] MEDS: MULTIVITAMIN 1 TAB PO SCH (08:21)
[2017-04-26] MEDS: PANTOPRAZOLE 40 MG INJ VIAL IVP SCH (08:21)
[2017-04-26] MEDS: AZITHROMYCIN 500 MG in DEXTROSE 5% 250 ML IV SCH (08:57)
--- NOTE | 2017-04-26 09:15 | NUR ---
DR. VARGAS IN TO CHECK PT, UPDATED PT'S CONDITION, WILL FOLLOW UP.
[2017-04-26] MEDS ORDERED: MORPHINE SULFATE 4 MG/ML SYR IVP PRN (09:20)
--- NOTE | 2017-04-26 09:20 | NUR ---
AND MADE AWARE OF PT URINE OUTPUT OF LAST NIGHT.
[2017-04-26 10:00] LABS: POTASSIUM 4.1 mmol/L (3.5-5.1)
[2017-04-26 10:01] LABS: ANION GAP 15.2 (8-16); CARBON DIOXIDE 18.9 mmol/L (21-32)
[2017-04-26 10:07] LABS: MAGNESIUM 2.1 mg/dL (1.8-2.4); PHOSPHORUS 3.7 mg/dL (2.5-4.9)
[2017-04-26] MEDS: VANCOMYCIN 1GM/DEXT 5% PREMIX 200 ML IV SCH ×2 (10:35→22:53)
[2017-04-26] MEDS: PROPOFOL 1000 MG/100 ML PREMIX 100 ML IV PRN ×2 (10:43→23:23)
--- NOTE | 2017-04-26 10:45 | NUR ---
CN REPORT WITH CHANGE OF SKIN CONDITION. PT'S SKIN ASSESSMENT DONE WITH PRIMARY RN AND NOTICE OF DTI WITH BUTTERFLY SHAPE ON COCCYX ENDING AREA AND EXTEND TO LEFT INNER BUTTOCK AREA MEASURED 4X6CM, 100% DARK MAROON SKIN INTACT, MOTHER AT BED SIDE AND SEEN THE WOUND SITE. MOTHER EXPLAINED TO PRIMARY RN THAT PT HAD THE SAME PROBLEMS FEW WEEKS BACK DUE TO DECLINE OF PHYSICAL CONDITION, SACROCOCCYX OPTIFORM DRESSING APPLIED AND POSITION TO RIGHT SIDE TO OFFLOAD SACRAL COCCYX AREA AT THIS TIME. EXPLAINED ALL COMORBIDITIES RT DELAY WOUND HEALING AND FURTHER SKIN BREAKS TO MOTHER. SHE VERBALIZES UNDERSTANDING. RECOMMENDATIONS TO APPLY OPTIFORM TO SACRALCOCCYX AND LEFT INNER BUTTOCK Q5 DAYS AND PRN IF SOILING, CONTINUE ALL PRESSURE ULCER PREVENTIVE MEASUREMENTS. Addendum: 04/26/17 at 1225 by Elenita Durán RN (Grace) MOTHER EXPLAINED THE SCABS ON R/L POSTERIOR SHOULDERS AND R/L ELBOWS ARE FROM FRICTIONS AND SHEERING WHEN PT. TRY TO REPOSITION HIMSELF AT HOME AND BED BOUND. Addendum: 04/26/17 at 1436 by Elenita Durán RN (Grace) SOPKE TO DR. SMITH, NEW DTI TO COCCYX TO INNER LEFT BUTTOCK NOTICE WITH RECOMMENDATIONS GIVEN.
--- NOTE | 2017-04-26 10:50 | NUR ---
PT'S MOTHER AT BEDSIDE, HAD CONVERSATION WITH
[2017-04-26] MEDS ORDERED: LIDOCAINE/EPI 1% 1:100000 20 ML VIAL INJ SCH (11:00)
[2017-04-26] MEDS ORDERED: LORazepam 2 MG/ML VIAL IM/IVP PRN (12:30)
--- NOTE | 2017-04-26 12:39 | NUR ---
DR. AIDA CUNNINGHAM SKIN AND MUSCLE BIOPSY AT BEDSIDE.
[2017-04-26] MEDS: NACL 0.9% 1,000 ML IV SCH ×2 (13:00→17:35)
--- NOTE | 2017-04-26 13:00 | NUR ---
HHN NOT GIVEN MED RETURNED PT IN PROCEDURE
--- NOTE | 2017-04-26 13:35 | NUR ---
PT RESTLESSNESS, ATIVAN 1 MG GIVEN PER ORDER.
[2017-04-26] MEDS ORDERED: FOAM DRESSING TP PRN (14:25)
[2017-04-26] MEDS ORDERED: FOAM DRESSING TP SCH (14:25)
--- NOTE | 2017-04-26 15:00 | NUR ---
PROCEDURE DONE, PT TOLERATED WELL.
--- NOTE | 2017-04-26 16:30 | NUR ---
MOVED PT TO WOUND BED WITH THE HELP OF CHARGE NURSE, CENTRAL OFFICE MAINTAINER AND RT . PT TOLERATED WELL. SOUL-MEDROL DID NOT GIVEN @ 1300 DUE TO PT WAS IN PROCEDURE, CHARGE NURSE AWARE. GIVEN AT 1630.
--- NOTE | 2017-04-26 17:37 | NUR ---
PT HAS ET TUBE SECURED AND AIRWAY IS PATENT. VENT SETTINGS ARE FI02 35%, VT 600, RR 20, PEEP 5. VENT ALARMS ARE SET AND WORKING. PT VITALS ARE HR 110, RR 22, SP02 99.
--- NOTE | 2017-04-26 17:40 | NUR ---
STOP AMIODARONE DRIP PER PROTOCOL.
[2017-04-26] MEDS ORDERED: FUROSEMIDE 20 MG/2 ML VIAL IVP SCH (18:15)
--- NOTE | 2017-04-26 19:00 | NUR ---
PT RESTING QUIETLY IN BED, NO C/O PAIN, VITALS STABLE AT THIS TIME. REPORT GIVEN TO CULLET WASHER RN.
--- NOTE | 2017-04-26 19:30 | NUR ---
ASSUMED ACRE OF PT.INITIAL ASSESSMENT COMPLETED.PT STILL SEDATED.ON PROPOFOL DRIP (RASS -2);ABLE TO FOLLOW SIMPLE COMMANDS.ORALLY INTUBATED FIO2 35% TV600 AC20 PEEP5.CLEAR MOD AMT OF SECRETIONS SUCTIONED ORALLY.TLC TO LT IJ INTACT WITH GOOD BLOOD RETURN TO ALL 3 PORTS.INFUSING NS AT 100ML/HR AND PROPOFOL DRIP AT 10MCG/KG/MIN.OGT INTACT.NO RESIDUAL.ON CONTINUOUS OGT FDG NUTREN PULMONARY AT 60ML WITH 100ML WATER FLUSH Q4HRS ORDERED.MULTIPLE SCABS STILL NOTED AND PURPLISH DISCOLORATION TO COCCYX ALSO NOTED.CHEST TUBE INTACT TO LOW CONTINUOUS SUCTION.W/FREEMAN CATHETER TO BSD DRAINING SMALL AMT OF YELLOW URINE.FLACC 0
--- NOTE | 2017-04-26 20:00 | NUR ---
ORAL CARE USING VAP KIT RENDERED.PT ON DAILY PROTONIX FOR GI PROPHYLAXIS AND SCD TO BLE FOR DVT PROPHYLAXIS.REPOSITIONED
[2017-04-26] MEDS ORDERED: AMIODARONE 200 MG TAB PO SCH (21:00)
--- NOTE | 2017-04-26 22:51 | NUR ---
CRITICAL LAB VANCO TROUGH 36.2; PHONE CALL MADE TO PHARMACIST .SPOKE WITH LAI.NOTIFIED OF VANCO TROUGH RESULT.ORDERED TO HOLD 2300 DOSE.
[2017-04-27] VITALS (77 sets, daily range): BP systolic 86–139; BP diastolic 39–80
--- NOTE | 2017-04-27 00:23 | NUR ---
PTS CONDITION REMAINS UNCHANGED.NO SOB NOTED.CHEST TUBE IN PLACE, INTACT.FREEMAN CATHETER INTACT.OGT INTACT.NO RESIDUAL NOTED.FLACC 0.REPOSITIONED.
[2017-04-27] MEDS: ALBUTEROL SULFATE/IPRATROPIU 3 ML SOL IH SCH ×4 (00:53→19:23)
[2017-04-27] MEDS ORDERED: NACL 0.9% IRR 250 ML BOTTLE IR SCH (01:00)
[2017-04-27] MEDS: cefTRIAXone 2,000 MG in DEXTROSE 5% 100 ML IV SCH (01:09)
[2017-04-27] MEDS: NACL 0.9% 1,000 ML IV SCH (01:14)
--- NOTE | 2017-04-27 02:00 | NUR ---
PT SEDATED.NO SOB NOTED.FLACC 0
[2017-04-27] MEDS: methylPREDNISolone SS 125 MG/2 ML VIAL IVP SCH ×3 (04:32→20:35)
[2017-04-27 05:04] LABS: HEMATOCRIT 28.3 % (36-52); HEMOGLOBIN 9.1 g/dL (12.0-18.0); MEAN CORPUSCULAR HEMOGLOBIN 30 pg (27-31); MEAN CORPUSCULAR HGB CONC 32 g/dL (33-37); MEAN CORPUSCULAR VOLUME 93 fL (80-94); PLATELET COUNT (AUTO) 129 K/uL (140-450); RED BLOOD CELL COUNT(AUTO) 3.04 MIL/uL (4.20-6.10); RED CELL DISTRIBUTION WIDTH 14.4 % (11.6-13.7); WHITE BLOOD COUNT (AUTO) 26.8 K/uL (4.8-10.8)
--- NOTE | 2017-04-27 05:15 | NUR ---
MORNING CARE DONE.LINEN CHANGED.PT CONTINUOUS TO BE SEDATED ON PROPOFOL DRIP RASS -2;CHEST TUBE INTACT.DRAINING REDDISH COLORED OUTPUT.FOLY INTACT.TLC INTACT .FLACC 0
[2017-04-27 06:12] LABS: ANION GAP 15.2 (8-16); CARBON DIOXIDE 18.2 mmol/L (21-32); CREATININE 2.4 mg/dL (0.7-1.3); POTASSIUM 4.4 mmol/L (3.5-5.1)
[2017-04-27 06:13] LABS: LYMPHOCYTES % (MANUAL) 1 % (20-46); MAGNESIUM 2.2 mg/dL (1.8-2.4); MONOCYTES % (MANUAL) 1 % (5-12)
--- NOTE | 2017-04-27 07:22 | NUR ---
RECEIVED ON A the ShelfSCAPE R860 VENTILATOR PLUGGED INTO RED OUTLET TOLERATING WELL WITHOUT ADVERSE REACTIONS NOTED TO A PORTEX ENDOTRACHEAL TUBE #7.5 SECURED AT 23cm WITH AN ANCHOR FAST CUFF PRESSURE MEASURED NOTED WITH A PRIYANKA CUFFLATOR AMBU BAG NOTED AT HOB LOC SEDATED EASILY AWAKENS BREATH SOUNDS DIFFUSED RHONCHI BILATERAL WITH GOOD CHEST RISE ENDOTRACHEAL SUCTION FOR MODERATE THICK YELLOW SECRETIONS AIRWAY PATENT OROPHARYNX SUCTION FOR LARGE THICK CLEAR TO YELLOW SECRETIONS
--- NOTE | 2017-04-27 07:25 | NUR ---
RECEIVED REPORT FROM EDUARD. PT IN BED, AWAKE, INTUBATED. CHEST TUBE IN PLACE ON RIGHT SIDE. LEFT IJ, DRY CLEAN AND DRY. OG FEEDING TUBE IN PLACE RUNNING 60ML/HR. FREEMAN IN PLACE. WILL CONTINUE TO MONITOR. Addendum: 04/27/17 at 1040 by Sarita Fagan RN PT IS ON AIRBORNE ISOLATION, SIGNS POSTED AT DOOR, PT INTUBATED WITH ETT AC/VC FIO2 35, TITAL VOLUME 600, RATE 30, FLOW 50 AND PEEP 5. SAFETY PRECAUTIONS, PTS CALL LIGHT IN REACH. PT HAS LEFT IJ TRIPLE LUMEN, PROPOFOL DRIP RUNNING, FREEMAN IN PLACE CLEAR YELLOW, CHEST TUBE ON LOW CONTINUOS SUCTION. SKIN WAS WARM TO TOUCH.
--- NOTE | 2017-04-27 08:00 | NUR ---
DR. VARGAS IN TO SEE PATIENT AND WILL FOLLOW UP ON ORDERS.
--- NOTE | 2017-04-27 08:10 | NUR ---
DR. VARGAS CAME TO SEE PT. CHANGED SEDATION, D/C PROPOFOL TO FENTYL AND VERSED AND REDUCEDD NS FROM 100ML TO 55ML HR
[2017-04-27] MEDS: PANTOPRAZOLE 40 MG INJ VIAL IVP SCH (08:20)
[2017-04-27] MEDS: LACTOBACILLUS RHAMNOSUS GG 1 EACH CAP PO SCH (08:20)
[2017-04-27] MEDS: DOCUSATE 100 MG/10 ML UDC GT SCH (08:20)
[2017-04-27] MEDS: ASPIRIN 81 MG TAB.CHEW PO SCH (08:21)
[2017-04-27] MEDS: MULTIVITAMIN 1 TAB PO SCH (08:21)
--- NOTE | 2017-04-27 08:40 | NUR ---
RESIDENT GROUP IN TO SEE PATIENT AND DR. BANKS AWARE OF ABNORMAL LAB RESULT. WILL CONTINUE TO MONITOR AND FOLLOW UP ON ORDERS.
[2017-04-27] MEDS ORDERED: AMIODARONE 200 MG TAB PO SCH (09:00)
--- NOTE | 2017-04-27 09:00 | NUR ---
VAP ORAL CARE PROVIDED PER PROTOCOL.
--- NOTE | 2017-04-27 09:00 | NUR ---
PT AWAKE AND ABLE TO RESPOND TO QUESTIONS BY NODDING / SHAKING HEAD. BED HAS 4 RAILS RAISED AND BED IN LOWEST POSITION. PERRL. PT HAS LEFT IJ, TRIPLE LUMEN WITH CVP, DIPRIVAN AND NS AT 100 ML/ HR. RONCHI THROUGHOUT BILATERALLY AND DIMINISHED IN LOWER LOBES BILATERALLY. S1, S2 HEARD. OG-TUBE IN PLACE, 10ML RESIDUALS AND FLUSHES. PT HAS NUTRENT PULMO RUNNING 60ML/ HR. PT DENIES ALL PAIN AND IS COMFORTABLE. PT HAS A CHEST TUBE ON RIGHT SIDE WITH LOW CONTINUOUS SUCTION. PT IS AFEBRILE, 98.4. SKIN CHECKED WITH SCABS ACROSS BODY- FINGERS, TOES, PENIS. BANDAGES CHANGED WHERE MUSCLE AND SKIN BIOPSY TAKEN YESTERDAY. INCISIONAL AREA CLEAN AND DRY.
[2017-04-27] MEDS: AZITHROMYCIN 500 MG in DEXTROSE 5% 250 ML IV SCH (09:03)
--- NOTE | 2017-04-27 09:44 | NUR ---
PT NOTED INCREASING AND IRREGULAR HEART RATE 140-160, A-FIB ON THE MONITOR. REPORTED TO DR. SMITH. WILL CONTINUE TO MONITOR AND FOLLOW UP ON ORDERS.
[2017-04-27] MEDS ORDERED: fentaNYL 1 MG in NACL 0.9% 80 ML IV PRN (09:50)
[2017-04-27] MEDS ORDERED: MIDAZOLAM MDV 50 MG in NACL 0.9% 40 ML IV PRN ×2 (09:50→10:10)
--- NOTE | 2017-04-27 09:50 | NUR ---
DR. SMITH AND DR. BANKS IN TO SEE PATIENT. PATIENT IS ON EKG TEST AT BEDSIDE FOR A-FIB WITH RVR. WILL CONTINUE TO MONITOR AND FOLLOW UP ON ORDERS.
--- NOTE | 2017-04-27 09:55 | NUR ---
RT CHANGED VENT SETTING FIOS TO 32%. WILL CONTINUE TO MONITOR.
[2017-04-27 09:56] LABS: PROTHROMBIN TIME 10.5 secs (10.8-13.4)
--- NOTE | 2017-04-27 10:00 | NUR ---
PT HAD A LARGE BOWEL MOVEMENT. CLEANED PT AND BED BATH GIVEN.
--- NOTE | 2017-04-27 10:00 | NUR ---
DR. GUIDO IN TO SEE PATIENT. WILL FOLLOW UP ON ORDERS.
--- NOTE | 2017-04-27 10:02 | NUR ---
SEDATED RESTING COMFORTABLY GOOD CHEST RISE BREATH SOUNDS COARSE RHONCHI BILATERAL ENDOTRACHEAL SUCTION FOR MODERATE THICK YELLOW SECRETIONS SATURATION 98% ON FIO2 OF 35% TITRATED FIO2 TO 32% YOUNG/RN TO BE NOTIFIED
[2017-04-27] MEDS ORDERED: AMIODARONE 450 MG in DEXTROSE 5% 250 ML IV SCH (10:17)
--- NOTE | 2017-04-27 10:20 | NUR ---
PT MOTHER AT BEDSIDE, SPEAKING WITH DR. BANKS. PT CONDITION UPDATE WAS GIVEN TO MOTHER. WILL CONTINUE TO FOLLOW UP AND MODIFY ORDERS.
--- NOTE | 2017-04-27 11:45 | NUR ---
DR. RODRIGUEZ, NE[place], CAME TO SEE PT. SPEAKING WITH PTS MOTHER TO UPDATE ON CONDITION. WILL CLOSELY MONITOR.
--- NOTE | 2017-04-27 11:45 | NUR ---
SEDATED NO SOB NOTED BREATH SOUNDS CLEAR BILATERAL WITH GOOD CHEST RISE SATURATION 98% ON FIO2 OF 32% TITRATED FIO2 30% YOUNG/RN NOTIFIED
--- NOTE | 2017-04-27 11:50 | NUR ---
RT CAME TO CHANGE VENT SETTINGS PEEP FIO2 TO 30% WILL CONTINUE TO MONITOR
--- NOTE | 2017-04-27 12:00 | NUR ---
VAP ORAL CARE PROVIDED, PER PROTOCOL. PT HAD THICK SECRETIONS DURING SUCTIONING. WILL CONTINUE TO MONITOR
--- NOTE | 2017-04-27 12:00 | NUR ---
DR. RODRIGUEZ D/C JUWAN FLUIDS, WORRIED ABOUT FLUID RETENTION. WILL CLOSELY MONITOR.
[2017-04-27] MEDS ORDERED: FUROSEMIDE 40 MG/4 ML VIAL IVP SCH ×3 (12:45→21:00)
[2017-04-27] MEDS ORDERED: DILTIAZEM 25 MG/5 ML VIAL IVP SCH (12:55)
--- NOTE | 2017-04-27 13:00 | NUR ---
DR MATA AND DR. BETH CAME TO SEE PT. SPOKE WITH PTS MOTHER AND INFORMED HER OF PTS STATUS. RECEIVED NEW MEDICATION ORDERS FOR PT. WILL CLOSELY MONITOR.
--- NOTE | 2017-04-27 13:19 | NUR ---
04/27/17 RD FOLLOW UP COMPLETED PLEASE REFER TO NUTRITION PROGRESS NOTE UNDER CARE ACTIVITY FOR ESTIMATED NUTRITION NEEDS. RD RECOMMENDATIONS: 1. CONTINUE ON CURRENT ENTERAL FEEDING OF NUTREN PULMONARY AT 60 ML/HR. 2. SHOULD PATIENT BE WEANED OFF OF VENTILATOR SUPPORT, CONSIDER SWALLOW EVALUATION TO DETERMINE PATIENTS PO INTAKE ABILITY. 3. CONSULT RD PRN SHOULD PATIENTS PO INTAKE CHANGE. 4. RD TO FOLLOW-UP 2-3 DAYS, HIGH RISK BISI WHITTAKER MS, RDN
--- NOTE | 2017-04-27 13:57 | NUR ---
SEDATED NO APPARENT RESPIRATORY DISTRESS NOTED GOOD CHEST RISE AIRWAY PATENT
--- NOTE | 2017-04-27 14:25 | NUR ---
PT HAS SECOND LARGE BOWEL MOVEMENT. BED BATH GIVEN, REPOSITIONED AND ADJUSTED PT FOR COMFORT. LEFT BED IN LOWEST POSITION WITH HOB ELEVATED 35 DEGREE, RAILS ELEVATED.
--- NOTE | 2017-04-27 14:40 | NUR ---
PT NOTED RASS SCORE -3 AND DECREASING BP 86/57 WELL LARGE AMOUNT OF LOOSE BROWNISH COLOR BOWEL MOVEMENT AROUND 1420. DECREASED VERSED DRIP TO 1MG/HR AND CLEANED THE PATIENT, REPOSITIONED,THEN RECHECKED BP 108/56 AND RASS SCORE -2 NOTED. RECEIVED A CALL FROM Leticia TURNER AND NOTIFIED OF PT'S STATUS. DR. JO STATED THAT MAINTAIN SBP ABOVE 90-100 AND MAY START LEVOPHED IV DRIP IF SBP BELOW THAN 90. DR. BANKS IN SEE TO PATIENT AND MADE AWARE OF IT. WILL CONTINUE TO MONITOR AND FOLLOW UP ON ORDERS.
--- NOTE | 2017-04-27 14:53 | NUR ---
CM NOTE RECEIVED ORDER FOR TRANSFER FOR HIGHER LEVEL OF CARE. SPOKE WITH RADHA OF [facility] PH# [phone] AND SHE SAID TO FAX CLINICALS/INQUIRY TO [facility] [phone]. FAXED CLINICALS/INQUIRY TO [facility] [phone]. I GAVE RADHA THE NUMBER OF DR. BANKS FOR POSSIBLE DOCTOR TO DOCTOR REPORT AND I ALSO GAVE HER THE NUMBER TO THE NURSING STATION WHERE PATIENT IS IN CASE PATIENT GETS ACCEPTED OR BED BECOMES AVAILABLE AT A LATER TIME. DR. BANKS AND ROSCOE RN AWARE. SPOKE WITH JORGE OF [facility] PH# [phone] AND HE SAID HE WILL SEND THEIR TRANSFER AGREEMENT AND REQUEST FORM AND HE ASKED [place] [facility] [place]. [place] [facility] [place] AND [place] [facility] [phone]. I GAVE JORGE THE NUMBER OF DR. BANKS FOR POSSIBLE DOCTOR TO DOCTOR REPORT AND THE NUMBER TO THE NURSING STATION WHERE PATIENT IS IN CASE PATIENT IS ACCEPTED AND A BED BECOMES AVAILABLE AT A LATER TIME. DR. BANKS AND ROSCOE RN AWARE.
--- NOTE | 2017-04-27 15:16 | NUR ---
NO APPARENT RESPIRATORY DISTRESS NOTED GOOD CHEST RISE
--- NOTE | 2017-04-27 15:23 | NUR ---
PAGEJolly PRIEST ABOUT PT REFUSING MEDICATION AND REMOVING LEFT FOREARM IV Addendum: 04/27/17 at 1531 by Sarita Fagan RN CHARTED ON INCORRECT PATIENT.
--- NOTE | 2017-04-27 16:34 | NUR ---
PROVIDED FREEMAN CATH CARE TO PATIENT. REPOSITIONS PT AND LEFT BED IN LOWEST POSITION. WILL CLOSELY MONITOR PT.
--- NOTE | 2017-04-27 17:50 | NUR ---
STABLE NO DISTRESS NOTED BREATH SOUNDS RHONCHI BILATERAL WITH GOOD CHEST RISE ENDOTRACHEAL SUCTION FOR MODERATE THICK PALE YELLOW SECRETIONS AIRWAY PATENT
--- NOTE | 2017-04-27 18:04 | NUR ---
CALLED [facility] AND SPOKE WITH ONEYDA REGARDING PT TRANSFER. SHE STATED THEY ARE GOING TO CONTINUE REVIEWING FILE AND LET US KNOW UPON DECISION.
--- NOTE | 2017-04-27 18:23 | NUR ---
CALLED [facility]. LEFT A VOICEMAIL REGARDING PT TRANSFER
--- NOTE | 2017-04-27 18:32 | NUR ---
[facility] RETURNED CALL, THEY ARE REVIEWING FILE, SPOKE WITH JORGE. HE STATED "THE TRANSFER TO THE FACILITY SOUNDS PROMISING BUT I HAVE NO IDEA IF THERE IS A BED AVAILABLE. CALL BACK IN 1 HOUR". WILL ENDORSE TO NEXT RN.
--- NOTE | 2017-04-27 18:40 | NUR ---
DR. OSORIO AND JORGE ([facility]) CALLED FROM [facility] TO DISCUSS PT TRANSFER. TRANSFERRED DR. OSORIO TO RESIDENT LINE
--- NOTE | 2017-04-27 19:28 | NUR ---
TRANSFERRED CARE TO [facility]. PT HOB 35 DEG ELEVATED, ALARMS CHECKED AND BED IN LOWEST POSITION.
--- NOTE | 2017-04-27 19:30 | NUR ---
DR. Reshma JO IN UNIT TO SEE PT FOR CARDIO CONSULT.
--- NOTE | 2017-04-27 19:30 | NUR ---
REPORT RECEIVED FROM MORNING NURSEROSCOE RN. PT IS SEDATED WITH VERSED AND FENTANYL DRIPS WITH RASS -2. PERRL. ETT TO VENT AC20, FIO2 30, TV 600, PEEP 5. RR EVEN AND UNLABORED. CHEST TUBE FROM RIGHT UPPER LATERAL CHEST CONNECTED TO LOW INTERMITTENT SUCTION WITH SEROSANGUINEOUS NO AIR LEAK NOTED AND SECURED TO THE SIDE OF THE BODY. BILATERAL LUNGS SOUND WITH CRACKLES AND DIMINISHED. OGT TO TUBE FEEDING. PLACEMENT CHECKED AND RESIDUAL 5ML. CENTRAL LINE TO LIJ WITH TRIPLE LUMEN. CVP READING 6. ON CONTINUOS CARDIAC MONITORING. ST ON MONITOR. AMIODARONE DRIP. BOWEL SOUNDS ACTIVE. BOWEL SOFT AND NON TENDER. GENERALIZED NON-PITTING EDEMA NOTED. FREEMAN CATHETER DRAINING CLEAR YELLOW URINE. GENERALIZED SCABS ON THE BODY NOTED. DRESSING INTACT TO SACROCOCCYX AREA. CAP REFILL WITHIN 3 SEC. AFEBRILE. FLACC 0. CALL LIGHT IN REACH. HOB ELEVATED TO 30 DEGREES. BED KEPT TO THE LOWEST. WILL CONTINUE TO MONITOR.
--- NOTE | 2017-04-27 20:20 | NUR ---
[place] [facility] [place] PT TO THEIR ICU ROOM [id number]. REPORT TO BE GIVEN TO [phone] AND TO CALL HIM BACK FOR ETA.
--- NOTE | 2017-04-27 20:24 | NUR ---
DR. DORSEY MADE AWARE THAT WE RECEIVED THE PHONE CALL FROM [facility].
--- NOTE | 2017-04-27 20:25 | NUR ---
REQUESTED ALL RADIOLOGY RESULTS INTO CD FROM RADIOLOGY DEPT IN PREPARATION OF [place] [facility] [place]
--- NOTE | 2017-04-27 20:28 | NUR ---
ZBIGNIEW, MOTHER WAS NOTIFIED OF THE [facility] ACCEPTING THE PT AND THERE IS A ROOM NUMBER.
[2017-04-27] MEDS ORDERED: TRIAMCINOLONE 0.5% CRM 15 GM TUBE TP SCH (21:00)
[2017-04-27] MEDS ORDERED: PETROLATUM WHITE 30 GM TUBE TP SCH (21:00)
--- NOTE | 2017-04-27 21:29 | NUR ---
DAMIAN FROM [facility] WAS NOTIFIED OF ETA OF [facility] FINISHING SUPERVISOR 0200 ON 04/28/2017.
[2017-04-27] MEDS ORDERED: [UNRECOGNIZED DRUG - CODE] IV (21:36)
[2017-04-27] MEDS ORDERED: AMIODARONE DRIP IV (21:36)
[2017-04-27] MEDS ORDERED: [UNRECOGNIZED DRUG - CODE] IV (21:36)
[2017-04-27] MEDS ORDERED: KEN.5C TP (21:36)
[2017-04-27] MEDS ORDERED: Probiotic Screen MC (21:36)
[2017-04-27] MEDS ORDERED: MULT-405 PO (21:36)
[2017-04-27] MEDS ORDERED: Foam Dressing TP ×2 (21:36)
[2017-04-27] MEDS ORDERED: PANT40PD7 IVP (21:36)
[2017-04-27] MEDS ORDERED: COL100L GT (21:36)
[2017-04-27] MEDS ORDERED: ASPI81CT95 PO (21:36)
[2017-04-27] MEDS ORDERED: Vancomycin Per Pharmacy MC (21:36)
[2017-04-27] MEDS ORDERED: LAS20I IVP (21:36)
[2017-04-27] MEDS ORDERED: IPRA3AMP IH ×2 (21:36)
[2017-04-27] MEDS ORDERED: ROC2I IV (21:36)
[2017-04-27] MEDS ORDERED: [UNRECOGNIZED DRUG - CODE] IJ (21:36)
[2017-04-27] MEDS ORDERED: SM1I IVP (21:36)
[2017-04-27] MEDS ORDERED: ACET-1182 PO (21:36)
[2017-04-27] MEDS ORDERED: LACT10CA PO (21:36)
[2017-04-27] MEDS ORDERED: [UNRECOGNIZED DRUG - OTHER] TP (21:36)
[2017-04-27] MEDS ORDERED: PHE25I IVP (21:36)
[2017-04-27] MEDS ORDERED: MORP4SOL10 IVP (21:36)
[2017-04-27] MEDS ORDERED: ACET-9525 PO (21:36)
--- NOTE | 2017-04-27 21:42 | NUR ---
VERBAL REPORT GIVEN TO VEENA FROM [facility] WHO WILL BE TAKING THE PT TO ICU ROOM 2283. ICU PHONE# [phone]. VEENA'S DIRECT NUMBER #[phone]. VEENA MADE AWARE ETA OF AMBULANCE IS 0200 ON 04/28/2017.
--- NOTE | 2017-04-27 22:00 | NUR ---
[facility] TEAM ARE HERE TO TRANSFER PT TO [facility] [place].
--- NOTE | 2017-04-27 22:10 | NUR ---
ZBIGNIEW, MOTHER MADE AWARE OF THE TRANSPORTATION HERE TO [place]SF[place] [facility] [place]. MOTHER MADE AWARE OF THE [facility] [place] ROOM NUMBER [id number], PHONE NUMBER, AND ADDRESS OF [facility].
--- NOTE | 2017-04-27 22:45 | NUR ---
PT DISCHARGED TO [facility] ICU WITH [facility] TRANSPORTATION AT THIS TIME. PT CONDITION WITHOUT ACUTE DISTRESS AND STABLE. DISCHARGE SUMMARY, INSTRUCTIONS AND CD'S ARE GIVEN TO THE TRANSFORATION TEAM.
[2017-04-29 10:55] LABS: URINE PROTEIN QUANT RANDOM 48.8 mg/dL (15-45)
== END 2017-04-27 22:45 | disposition short-term general hospital (02) | DRG 720 ==
LOC: MED 11:19 → MIC 13:35
PROVIDERS: ADMIT Family Medicine Sports Medicine; ATTEND Family Medicine Sports Medicine
PROC: 0W9930Z Drainage of Right Pleural Cavity with Drainage Device, Percutaneous Approach (ICD-10-PCS; 2017-04-23)
PROC: 02HV33Z Insertion of Infusion Device into Superior Vena Cava, Percutaneous Approach (ICD-10-PCS; 2017-04-23)
PROC: B548ZZA Ultrasonography of Superior Vena Cava, Guidance (ICD-10-PCS; 2017-04-23)
PROC: 0BH17EZ Insertion of Endotracheal Airway into Trachea, Via Natural or Artificial Opening (ICD-10-PCS; principal; 2017-04-24)
PROC: 5A1945Z Respiratory Ventilation, 24-96 Consecutive Hours (ICD-10-PCS; 2017-04-24)
PROC: 0KB70ZX Excision of Right Upper Arm Muscle, Open Approach, Diagnostic (ICD-10-PCS; 2017-04-26)
PROC: 0HBBXZX Excision of Right Upper Arm Skin, External Approach, Diagnostic (ICD-10-PCS; 2017-04-26)
DX: A41.9 Sepsis, unspecified organism (principal); J96.01 Acute respiratory failure with hypoxia; I21.A1 Myocardial infarction type 2; N17.0 Acute kidney failure with tubular necrosis; R65.21 Severe sepsis with septic shock; G93.41 Metabolic encephalopathy; J90 Pleural effusion, not elsewhere classified; E43 Unspecified severe protein-calorie malnutrition; J18.9 Pneumonia, unspecified organism; I48.91 Unspecified atrial fibrillation; A64 Unspecified sexually transmitted disease; D89.89 Other specified disorders involving the immune mechanism, not elsewhere classified; N48.89 Other specified disorders of penis; M43.6 Torticollis; G72.49 Other inflammatory and immune myopathies, not elsewhere classified; J93.9 Pneumothorax, unspecified; L98.9 Disorder of the skin and subcutaneous tissue, unspecified; H57.8 Other specified disorders of eye and adnexa; D64.9 Anemia, unspecified; F17.210 Nicotine dependence, cigarettes, uncomplicated; R74.0 Nonspecific elevation of levels of transaminase and lactic acid dehydrogenase [LDH]; E87.1 Hypo-osmolality and hyponatremia; I95.9 Hypotension, unspecified; E87.0 Hyperosmolality and hypernatremia; Z82.49 Family history of ischemic heart disease and other diseases of the circulatory system
CPT/HCPCS: 32551; 36415; 36600; 70450; 71045; 71250; 72125; 73200; 73700; 76881; 80048; 80053; 80202; 80305; 81001; 82085; 82140; 82150; 82533; 82550; 82553; 82570; 82607; 82728; 82746; 82784; 82785; 82803; 83036; 83516; 83540; 83605; 83615; 83690; 83735; 83874; 83880; 83930; 83935; 84100; 84155; 84157; 84300; 84439; 84443; 84479; 84484; 84550; 85025; 85045; 85610; 85613; 85651; 85730; 86060; 86140; 86160; 86430; 86592; 86704; 86706; 86708; 86709; 86803; 87040; 87070; 87081; 87086; 87116; 87186; 87190; 87205; 87206; 87340; 87491; 87804; 89220; 93005; 94002; 94003; 94640; 96361; 96365; 96375; 99291; A9153; C9113; J0282; J0456; J0696; J1644; J1940; J1956; J2001; J2060; J2250; J2270; J2543; J2704; J2916; J2930; J3010; J3370; J3411; J3475; J3490; J7030; J7060; J7620; Q0092